=== PATIENT | female | born 1950 | race Caucasian/White ===

== ENCOUNTER 2017-12-18 16:00 | Emergency (ER) | payer OTHER ==
[~2017-12-18] VITALS: Ht 170.2 cm; Wt 64.0 kg
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
--- NOTE | 2017-12-18 17:31 | CT SCAN REPORT ---
EXAMINATION: CT CHEST WITHOUT CONTRAST CLINICAL INFORMATION: Status post fall onto anterior rib/sternum. Rule out fracture. Fall onto anterior ribs/sternum. COMPARISON: Chest x-ray dated 12/12/2017. TECHNIQUE: Multidetector volumetric CT imaging of the chest was obtained noncontrast. Sagittal and coronal reformations were obtained. DLP: 201.04 mGy-cm. FINDINGS: LUNGS: Linear areas of subsegmental atelectasis is seen in both lower lobes and in the inferior lingula and right middle lobe. There are multiple tiny 2 to 4 mm solid noncalcified nodular densities seen in the right upper lobe (series 4, image 191 and 207 and 245) and left upper lobe (series 4, image 204), most likely representing tiny areas of mucus inspissation within small airways. No suspicious focal lung nodule or mass. No effusion or pneumothorax. Central airways patent. LYMPHOVASCULAR STRUCTURES: Ascending aorta is borderline aneurysmal, measuring 4.0 cm in maximal AP diameter at the level of the right main pulmonary artery. Descending aorta at the same level measures 2.5 cm and the aortic arch just beyond the takeoff of the left subclavian artery measures 2.6 cm. Mild atherosclerotic aortic calcifications are noted. Mild coronary artery calcifications is seen. Heart size normal. Trace pericardial effusion is seen. No mediastinal, hilar or axillary adenopathy. THYROID GLAND: Unremarkable to the extent included. CHEST WALL: There is a biopsy clip seen in the 12:00 position of the left breast periareolar location at site of previous benign biopsy (patient has a history of left breast fibroadenoma in 2002 and left breast atypical ductal hyperplasia in 2006). Dense glandular tissue of the breasts is seen, poorly evaluated by CT scan. UPPER ABDOMEN: There is a nonobstructing 0.2 cm mid left renal calcification. Included portions of the solid organs in the upper abdomen otherwise unremarkable on noncontrast study. BONES: Diffuse osteopenia. No rib fractures seen. There appears to be a subtle transverse incomplete fracture through the anterior cortex of the upper sternal body (coronal reconstructed series 601, image 17, sagittal series 602, image 66) with no disruption of the posterior cortex at this level. There is no significant pre or retrosternal hematoma. Mild vertebral spondylosis seen in the upper and mid thoracic spine. IMPRESSION: 1. There is a very subtle incomplete transverse fracture suspected in the upper sternal body, extending only through the anterior cortex. No significant associated pre or retrosternal hematoma formation is seen. 2. No definite rib fracture is seen. Diffuse osteopenia. 3. Scattered areas of atelectasis in the mid and lower lung bilaterally. No pleural effusion or pneumothorax. 4. Borderline ascending aortic aneurysm with maximal AP diameter of 4.0 cm.
[2017-12-18 18:17] VITALS: BP 144/63
[2017-12-18] MEDS ORDERED: TRAMADOL HCL50 M1 PO (18:23)
== END 2017-12-18 19:07 ==
LOC: ERH 16:00
DX: S22.20XA Unspecified fracture of sternum, initial encounter for closed fracture (principal); W18.09XA Striking against other object with subsequent fall, initial encounter; Y92.9 Unspecified place or not applicable; Y93.89 Activity, other specified
CPT/HCPCS: 93005; 93010